=== PATIENT | female | born 1965 | race Two or more races ===

== ENCOUNTER 2018-11-11 13:18 | Emergency (ER) | payer OTHER ==
[2018-11-11 13:31] VITALS: BP 108/70
--- NOTE | 2018-11-11 14:20 | EDPHY ---
H & P Time Seen by Provider: 11/11/18 14:10 HPI/ROS: Chief complaint: Facial rash History of present illness: This is a 53-year-old female who presents to the emergency department for a facial rash. She has had a rash under her eyes and on her cheeks for the last few weeks. She states is red and itchy. She also has some tearing of the eyes. She denies any precipitating factors such as new lotions or environmental exposures. She did see a primary care doctor recommended Claritin which she has been taking with minimal improvement. She did see an extension work instructor states her eyes were fine. Symptoms persist. She denies other associated signs or symptoms including no fever, no runny nose or nasal congestion, no sore throat, no swelling of the tongue or throat, no cough , no difficulty breathing. Smoking Status: Never smoked Physical Exam: General: Alert, nontoxic. Skin: Erythema with mild edema to the inferior aspect of the eyes and cheeks bilaterally. The rest of the face is unremarkable. No other rashes noted on the body. There are no pustules, no vesicles, no petechiae. The eyes: PERRLA. No injection. No discharge. EOM intact without reported discomfort. ENT: Tympanic membranes, external auditory canals, external ears and surrounding soft tissue including over the mastoids are unremarkable. Nasopharynx is not injected. There is no rhinorrhea. Oropharynx is not injected. There is no edema. There is no exudate. There is no asymmetry. The uvula is midline. No elevation of the tongue. There is no hoarseness, no drooling, no trismus, no stridor. No angioedema. Neurological: Alert and oriented x4. No meningismus. Constitutional: Initial Vital Signs Temperature (C) 36.8 C 11/11/18 13:27 Heart Rate 84 11/11/18 13:27 Respiratory Rate 18 11/11/18 13:27 Blood Pressure 108/70 11/11/18 13:27 O2 Sat (%) 99 11/11/18 13:27 O2 Delivery Mode Room Air Allergies/Adverse Reactions: No Known Allergies Allergy (Unverified 11/11/18 13:26) Home Medications: Medication Instructions Recorded Claritin 11/11/18 Flexeril 10 MG (*) 11/11/18 Multivitamins 11/11/18 Supplements 11/11/18 MDM/Departure - [facility] ED Course/Re-evaluation: Patient seen under the supervision of my secondary supervising physician Dr. Ld Bautista. Patient presents to the emergency department for a rash to her face. She has had it for number of weeks. She is nontoxic. Afebrile and vital signs are stable. It appears most consistent with a dermatitis. I believe unlikely infectious or angioedema. She has been taking Claritin. She is allergic to Benadryl. I have recommended topical hypo allergenic moisturizing creams and [id number] steroid cream. She is referred to a primary care doctor or Dermatology for follow-up. Return precautions are given. The patient voiced understanding and agreement with plan. Differential Diagnosis: Appears most likely to be a dermatitis, unlikely cellulitis or angioedema, possibly systemic illness - Depart Disposition: Home, Routine, Self-Care Clinical Impression: Rash Condition: Good Instructions: Acute Rash (ED) Additional Instructions: Follow-up with your primary care or a supervisor commissary production doctor for continued evaluation and care Use a hypoallergenic skin moisturizer such as Cetaphil or Aquaphor You can use [id number] hydrocortisone cream on the face [address] it on the eyelids and do not let it get in the eyes. If symptoms worsen or new symptoms develop return to the emergency department for recheck Referrals: [facility] [Other] - As per Instructions [facility] [Outside] - As per Instructions
== END 2018-11-11 14:35 | disposition home or self-care (01) ==
DX: R21 Rash and other nonspecific skin eruption (principal)